=== PATIENT | male | born 2000 | race Caucasian/White ===

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

== ENCOUNTER 2020-02-13 16:13 | Emergency (ER) | payer BC ==
[~2020-02-13] VITALS: Ht 185.4 cm; Wt 79.4 kg
[2020-02-13 16:59] LABS: *BILIRUBIN,URIN NEGATIVE (NEGATIVE); *BLOOD, URINE NEGATIVE (NEGATIVE); *CLARITY,URINE CLEAR (CLEAR); *COLOR,URINE YELLOW (YELLOW); *KETONES,URINE NEGATIVE (NEGATIVE); *UROBILINOGEN,URINE 0.2 E.U./dl (NORMAL); LEUKOCYTE ESTERASE ,URINE NEGATIVE (NEGATIVE); NITRITE, URINE NEGATIVE (NEGATIVE); PH,URINE 8.5 (5.0-8.0); UGLUCOSE NEGATIVE (NEGATIVE)
--- NOTE | 2020-02-13 17:44 | NUR ---
Patient discharged to home in stable condition. Written and verbal after care instructions given. Patient verbalizes understanding of instructions. Stressed follow up or return to ER for worsening s/s.
== END 2020-02-13 18:00 | disposition home or self-care (01) ==
LOC: ER 16:13
DX: N50.812 Left testicular pain (principal); R07.9 Chest pain, unspecified
CPT/HCPCS: 71045; 76870; 93005; A4663

== ENCOUNTER 2020-05-24 19:13 | Emergency (ER) | payer BC ==
[~2020-05-24] VITALS: Ht 185.4 cm; Wt 74.6 kg
--- NOTE | 2020-05-24 19:20 | NUR ---
Patient ambulated with stable gait. Speech is clear, speaks in complete sentences. No acute neuro deficits. A/Ox4. Patient came for c/o dizziness, nausea, and left sided chest pain x2 days. Respiratory even and unlabored, no cough no sob. Denies any palpitations, all pulses palpable. Denies any vomiting or diarrhea. Denies any distress. Patient in bed, connected to court bailiff. Will continue to observe and wait for MD orders.
--- NOTE | 2020-05-24 19:42 | NUR ---
ERMD at bedside for MSE
--- NOTE | 2020-05-24 19:47 | NUR ---
XRAY at bedside for CXR.
--- NOTE | 2020-05-24 19:56 | NUR ---
ORTHOSTATIC B/P: Laying- 146/64 - HR87 Sitting - 144/86 - HR84 Standing - 139/123 - HR135 PINKY made aware.
[2020-05-24] MEDS ORDERED: IV NS 1000 ML 1,000 ML IV ONE ×2 (20:00→21:30)
--- NOTE | 2020-05-24 20:10 | NUR ---
Lab drawn and sent.
[2020-05-24 20:17] LABS: BASOPHILS % (AUTO) 0.2 % (0.0-2.0); EOSINOPHILS # (AUTO) 0.1 K/uL (0.0-0.7); EOSINOPHILS % (AUTO) 1.4 % (0.0-7.0); HEMATOCRIT 45.8 % (36.7-47.1); HEMOGLOBIN 16.1 g/dL (12.5-16.3); LYMPHOCYTES # (AUTO) 1.9 K/uL (20.0-40.0); LYMPHOCYTES % (AUTO) 40.2 % (20.5-51.5); MEAN CORPUSCULAR HEMOGLOBIN 31.3 uug (23.8-33.4); MEAN CORPUSCULAR HGB CONC 35 g/dL (32.5-36.3); MONOCYTES # (AUTO) 0.4 K/uL (2.0-10.0); MONOCYTES % (AUTO) 9.1 % (0.0-11.0); NEUTROPHILS # (AUTO) 2.3 K/uL (1.8-8.9); NEUTROPHILS % (AUTO) 49.1 % (38.5-71.5); PLATELET COUNT (AUTO) 225 K/uL (152-348); RED BLOOD CELL COUNT(AUTO) 5.15 MIL/uL (4.06-5.63); WHITE BLOOD COUNT (AUTO) 4.8 K/uL (3.6-10.2)
[2020-05-24 20:21] LABS: CREATININE 1.2 mg/dL (0.6-1.3); POTASSIUM 3.7 mmol/L (3.5-5.1)
[2020-05-24] MEDS ORDERED: ASPIRIN 325 MG TABLET PO ONE (21:00)
[2020-05-24] MEDS ORDERED: ASPIRIN 325 MG TABLET ONE (21:10)
[2020-05-24 22:46] VITALS: BP 131/89
--- NOTE | 2020-05-24 22:46 | NUR ---
Patient discharged to home in stable condition. Written and verbal after care instructions given. Patient verbalizes understanding of instructions. Stressed follow up or return to ER for worsening s/s. IV removed. Catheter intact and site benign. Pressure and 4x4 gauze applied to site. No bleeding noted.
== END 2020-05-24 22:47 | disposition home or self-care (01) ==
LOC: ER 19:16
DX: R07.9 Chest pain, unspecified (principal); R00.2 Palpitations; I49.8 Other specified cardiac arrhythmias
CPT/HCPCS: 36415; 70030-TC; 71045; 85025; 93005; A4663; J7030